=== PATIENT | male | born 1945 | race Hispanic/Latino ===

== ENCOUNTER 2025-08-15 07:14 | Day surgery (SDC) | payer OTHER ==
[~2025-08-15] VITALS: Ht 167.6 cm; Wt 68.0 kg
[2025-08-15] VITALS (10 sets, daily range): BP systolic 118–165; BP diastolic 62–79; PULSE 49–62; RESP 15–18; TEMP 97.5–98.1
[2025-08-15] MEDS ORDERED: CIPR250T6 PO (08:53)
[2025-08-15] MEDS ORDERED: PANT40TA54 PO (08:53)
[2025-08-15] MEDS ORDERED: AMLO-257 PO (08:53)
[2025-08-15] MEDS ORDERED: folic acid PO (08:53)
[2025-08-15] MEDS ORDERED: ATOR-2 PO (08:53)
[2025-08-15] MEDS ORDERED: TAMS-55 PO (08:53)
[2025-08-15] MEDS ORDERED: CHOL100040 PO (08:53)
[2025-08-15] MEDS ORDERED: CYAN-52 PO (08:53)
[2025-08-15] MEDS: 0.9%NACL 1000ML 1,000 ML IV ONE (08:53)
[2025-08-15] MEDS ORDERED: THIA100T91 PO (08:53)
[2025-08-15] MEDS ORDERED: CARB1DRO OP (08:53)
[2025-08-15] MEDS ORDERED: SENN-297 PO (08:53)
[2025-08-15] MEDS ORDERED: LIDOCAINE HCL 1% 20 ML VIAL ONE (11:35)
== END 2025-08-15 13:09 | disposition home or self-care (01) ==
LOC: DAH 07:14 → ENDO 07:14
PROVIDERS: ATTEND Internal Medicine
DX: Z43.1 Encounter for attention to gastrostomy (principal); K29.50 Unspecified chronic gastritis without bleeding; K21.9 Gastro-esophageal reflux disease without esophagitis; R13.12 Dysphagia, oropharyngeal phase; K44.9 Diaphragmatic hernia without obstruction or gangrene; I10 Essential (primary) hypertension; Q39.4 Esophageal web; Z98.890 Other specified postprocedural states; Z80.0 Family history of malignant neoplasm of digestive organs; Z90.89 Acquired absence of other organs; Z79.899 Other long term (current) drug therapy
CPT/HCPCS: 43239; 43247; J7030; J2704; A4620; A4215; J3490